=== PATIENT | male | born 1980 | race African-American/Black ===

== ENCOUNTER 2019-11-24 12:04 | Day surgery (SDC) | payer BC ==
[~2019-11-24] VITALS: Ht 182.9 cm; Wt 79.4 kg
[2019-11-24] MEDS ORDERED: LACTATED RINGERS 1,000 ML IV SCH (13:15)
[2019-11-24] MEDS ORDERED: FENTANYL CITRATE/PF 50MCG/ML 2ML VIAL ONE (14:42)
[2019-11-24] MEDS ORDERED: PROPOFOL 200MG/20ML VIAL IV ONE (14:43)
[2019-11-24] MEDS ORDERED: LIDOCAINE HCL/PF 1% 10 MG/ML 5ML VIAL ONE (14:43)
[2019-11-24] MEDS ORDERED: MIDAZOLAM HCL 2 MG/2 ML VIAL ONE (14:43)
[2019-11-24] MEDS ORDERED: CEFAZOLIN SODIUM 1000MG/VIAL ONE (14:59)
[2019-11-24] MEDS ORDERED: METOCLOPRAMIDE HCL 10MG/2ML VIAL ONE (15:06)
[2019-11-24] MEDS ORDERED: HYDR-4009 PO (15:44)
[2019-11-24] MEDS ORDERED: TAMS-11 PO (15:44)
[2019-11-24] MEDS ORDERED: CETI5TAB5 PO (15:44)
[2019-11-24] MEDS: HYDROMORPHONE HCL/PF 2MG/ML CPJ IV PRN ×3 (16:21→16:46)
[2019-11-24 16:46] VITALS: BP 121/79
== END 2019-11-24 18:00 | disposition home or self-care (01) ==
LOC: OR 12:04
PROVIDERS: ATTEND Urology
DX: N13.2 Hydronephrosis with renal and ureteral calculous obstruction (principal); Z79.899 Other long term (current) drug therapy; Z87.891 Personal history of nicotine dependence; Z80.42 Family history of malignant neoplasm of prostate
CPT/HCPCS: 50590; 71045; 93005; J0690; J1170; J2250; J2704; J2765; J3010; J3490